=== PATIENT | male | born 1995 | race Caucasian/White ===

== ENCOUNTER 2017-10-08 17:37 | Emergency (ER) | payer OTHER, BC ==
[2017-10-08] MEDS: KETOROLAC TROMETHAMINE 10 MG TAB PO (18:45)
[2017-10-08] MEDS: ACETAMINOPHEN TAB 650MG DOSE (2X325MG) PO (18:45)
== END 2017-10-08 19:03 | disposition home or self-care (01) ==
LOC: M ED 17:37
DX: S43.402A Unspecified sprain of left shoulder joint, initial encounter (principal); W19.XXXA Unspecified fall, initial encounter; Y92.89 Other specified places as the place of occurrence of the external cause
CPT/HCPCS: 73030